=== PATIENT | female | born 1965 | race Caucasian/White ===

== ENCOUNTER 2017-06-01 11:46 | Emergency (ER) | payer OTHER ==
[2017-06-01 12:09] VITALS: BP 143/85; PULSE 80; TEMP 98; BMI 29.8
--- NOTE | 2017-06-01 13:17 | PDOC ---
History of Present Illness - General Chief Complaint: Cold Symptoms Stated Complaint: FEVER, HEADACHES Time Seen by Provider: 06/01/17 13:03 History Source: Patient Exam Limitations: No Limitations - History of Present Illness Initial Comments: 06/01/17 13:10 51 yr female with c/o cough nasal congestion, sinus congestion , ear pain for 3 days. past smoker no current medical history, on no medications. no shortness of breath or chest pain. pt states green productive phlegm . 06/01/17 13:14 Past History - Past Medical History Allergies/Adverse Reactions: Allergies Allergy/AdvReac Type Severity Reaction Status Date / Time No Known Drug Allergies Allergy Verified 06/01/17 12:06 strawberry [[place]] Allergy Rash Verified 06/01/17 12:06 Home Medications: Ambulatory Orders Azithromycin [Zithromax 250mg Tablets -] 250 mg PO UTDICT #6 tab 06/01/17 Other medical history: DENIES. - Psycho/Social/Smoking Cessation Hx Anxiety: No Suicidal Ideation: No Smoking History: Former smoker Have you smoked in the past 12 months: No If you are a former smoker, when did you quit?: 1999 Information on smoking cessation initiated: No Hx Alcohol Use: No Drug/Substance Use Hx: No Substance Use Type: None Respiratory Specific PMHX - Complaint Specific PMHX Angina: No Bronchitis: Yes Pneumonia: No Pulmonary Embolus: No TB (Tuberculosis): No Review of Systems - Review of Systems Able to Perform ROS?: Yes Is the patient limited Bermudian proficient: No Constitutional: Yes: See HPI. No: Symptoms Reported HEENTM: Yes: Symptoms Reported Respiratory: Yes: Symptoms reported *Physical Exam - Vital Signs Last Vital Signs Temp Pulse Resp BP Pulse Ox 98 F 80 19 143/85 97 06/01/17 12:06 06/01/17 12:06 06/01/17 12:06 06/01/17 12:06 06/01/17 12:06 - Physical Exam General Appearance: Yes: Nourished, Appropriately Dressed HEENT: positive: EOMI, JANIS, Pharynx Normal, Nasal Congestion, TM Bulging ( right ) Neck: positive: Supple. negative: Lymphadenopathy (R), Lymphadenopathy (L) Respiratory/Chest: positive: Lungs Clear, Normal Breath Sounds. negative: Rhonchi, Stridor, Wheezing Cardiovascular: positive: Regular Rhythm, Regular Rate Medical Decision Making - Medical Decision Making 06/01/17 13:15 cc: sinus congestion, productive cough , ear pain exam consistent with bronchitis will treat with pablo angel asking for a work note. *DC/Admit/Observation/Transfer Diagnosis at time of Disposition: Bronchitis, Nasal congestion - Discharge Dispostion Disposition: HOME Condition at time of disposition: Good - Prescriptions Prescriptions: Azithromycin [Zithromax 250mg Tablets -] 250 mg PO UTDICT #6 tab - Patient Instructions Printed Discharge Instructions: DI for Acute Bronchitis Additional Instructions: drink pleanty of fluids to stay hydrated take the Azithromycin as prescribed get an over the counter decongestant such as sudafed for congestion - Post Discharge Activity Work/School Note: Back to Work
== END 2017-06-01 13:22 | disposition home or self-care (01) ==
LOC: JERFT 11:46
DX: J40 Bronchitis, not specified as acute or chronic (principal); R09.89 Other specified symptoms and signs involving the circulatory and respiratory systems; Z87.891 Personal history of nicotine dependence
CPT/HCPCS: 99281-25

== ENCOUNTER 2017-10-27 21:52 | Emergency (ER) | payer SELFPAY ==
[2017-10-27 22:00] VITALS: BP 148/92; BMI 29.8
--- NOTE | 2017-10-27 22:44 | PDOC ---
History of Present Illness - General Chief Complaint: Cold Symptoms Stated Complaint: HEADACHE Time Seen by Provider: 10/27/17 21:58 - History of Present Illness Initial Comments: 10/27/17 22:33 Pt is a 51 F with no significant PMH who presents to ED with cold symptoms since late Sep. Pt states that she's had cough productive of brown phlegm , fever (101F on Sun), diarrhea (single episode on Sun), runny nose (recently has had bloody streaks on tissue when blowing her nose), headache, ear ache, and sore throat. Pt has been taking tylenol (last dose today at 3pm). She admits to decreased food intake, but she has been drinking fluids without trouble. Pt denies nausea, vomiting, sob, cp, abd pain, blood in urine/stool. Past History - Past Medical History Allergies/Adverse Reactions: Allergies Allergy/AdvReac Type Severity Reaction Status Date / Time No Known Drug Allergies Allergy Verified 06/01/17 12:06 strawberry [[place]] Allergy Rash Verified 06/01/17 12:06 Home Medications: Ambulatory Orders Benzonatate [Tessalon Pearls -] 100 mg PO TID #21 capsule 10/27/17 - Suicide/Smoking/Psychosocial Hx Smoking History: Former smoker Have you smoked in the past 12 months: No If you are a former smoker, when did you quit?: 2008 Information on smoking cessation initiated: No Hx Alcohol Use: No Drug/Substance Use Hx: No Substance Use Type: None Review of Systems - Review of Systems Able to Perform ROS?: Yes Is the patient limited French proficient: No Constitutional: Yes: Symptoms Reported, Fever. No: Chills, Weakness HEENTM: Yes: Symptoms Reported, Eye Pain, Ear Pain, Nose Congestion. No: Blurred Vision, Recent change in vision, Double Vision Respiratory: Yes: Symptoms reported, Cough, Productive cough. No: Shortness of Breath, Wheezing Cardiac (ROS): Yes: Symptoms Reported, Chest Pain (2/2 cough) ABD/GI: Yes: Diarrhea (single episode), Poor Appetite. No: Difficulty Swallowing, Nausea, Poor Fluid Intake, Rectal Bleeding, Vomiting : Yes: Symptoms Reported. No: Burning, Dysuria, Discharge, Frequency, Hematuria, Urgency Musculoskeletal: Yes: Symptoms Reported. No: Joint Pain, Muscle Pain, Muscle Weakness *Physical Exam - Vital Signs Last Vital Signs Temp Pulse Resp BP Pulse Ox 148/92 98 10/27/17 21:57 10/27/17 21:57 - Physical Exam General Appearance: Yes: Nourished, Appropriately Dressed. No: Apparent Distress HEENT: positive: EOMI, JANIS, Normal ENT Inspection, TMs Normal, Pharynx Normal, Hearing Grossly Normal. negative: Muffled/Hoarse voice, Pharyngeal Erythema, Tonsillar Erythema, Sinus Tenderness Neck: positive: Trachea midline, Supple. negative: Tender, Lymphadenopathy (R) , Lymphadenopathy (L) Respiratory/Chest: positive: Lungs Clear, Normal Breath Sounds. negative: Chest Tender, Respiratory Distress Cardiovascular: positive: Regular Rhythm, Regular Rate, S1, S2 Vascular Pulses: Dorsalis-Pedis (R): 2+, Doralis-Pedis (L): 2+ Gastrointestinal/Abdominal: positive: Normal Bowel Sounds, Flat, Soft. negative : Tender, Organomegaly, Pulsatile Mass Extremity: positive: Normal Capillary Refill, Normal Inspection Neurologic: positive: Fully Oriented, Alert, Normal Mood/Affect Medical Decision Making - Medical Decision Making 10/27/17 22:46 Pt is a 51F w/ no significant PMH who presented to ED with URI symptoms for 2 weeks. Pt had single episode of fever and diarrhea, both of which have resolved , however, headache, malaise, and cough persist. Plan -Flu swab -Tessalon juventino for 7 d outpt -Pt stable, afebrile, in NAD 10/28/17 05:36 Flu swab negative *DC/Admit/Observation/Transfer Diagnosis at time of Disposition: URI (upper respiratory infection) Qualifiers: URI type: unspecified viral URI Qualified Code(s): J06.9 - Acute upper respiratory infection, unspecified - Discharge Dispostion Disposition: HOME Admit: No - Prescriptions Prescriptions: Benzonatate [Tessalon Pearls -] 100 mg PO TID #21 capsule - Referrals - Patient Instructions Printed Discharge Instructions: How to Avoid a Cold or Flu, DI for Viral Upper Respiratory Infection -- Adult Additional Instructions: Please take your prescription medications as directed. Please follow up with your primary care doctor within a week. If you develop new symptoms or if your symptoms get worse, please return to the emergency department immediately. - Post Discharge Activity
== END 2017-10-28 00:23 | disposition home or self-care (01) ==
LOC: JER 21:52
DX: J06.9 Acute upper respiratory infection, unspecified (principal)
CPT/HCPCS: 87804; 99281-25

== ENCOUNTER 2019-05-02 16:49 | Emergency (ER) | payer SELFPAY ==
--- NOTE | 2019-05-02 16:59 | PDOC ---
Rapid Medical Evaluation Time Seen by Provider: 05/02/19 16:57 Medical Evaluation: Allergies Allergy/AdvReac Type Severity Reaction Status Date / Time No Known Drug Allergies Allergy Verified 06/01/17 12:06 strawberry [[place]] Allergy Rash Verified 06/01/17 12:06 05/02/19 16:57 I have performed a brief in-person evaluation of this patient. The patient presents with a chief complaint of: right wrist pain- RHD Pertinent physical exam findings: firm mobile mass present to right dorsal wrist laterally I have ordered the following: nothing The patient will proceed to the ED for further evaluation.
[2019-05-02 17:00] VITALS: BP 139/89; PULSE 99; TEMP 98.2; BMI 31.9
[2019-05-02] MEDS ORDERED: ACETAMINOPHEN 325 MG TABLET (FP) PO ONE (17:41)
[2019-05-02] MEDS ORDERED: ACETAMINOPHEN 325 MG TABLET (FP) ONE (17:41)
--- NOTE | 2019-05-02 17:41 | PDOC ---
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 She states it was definitely injured at work today. Patient has no chest pain, shortness of breath, but she feels a swelling in the right arm. No fever and otherwise feels well. GENERAL/CONSTITUTIONAL: No fever, weakness. dizziness HEAD, EYES, EARS, NOSE AND THROAT: No change in vision. No ear pain or discharge. No sore throat. CARDIOVASCULAR: No chest pain RESPIRATORY: No shortness of breath or cough GASTROINTESTINAL: No pain, nausea, vomiting, diarrhea or constipation GENITOURINARY: No dysuria MUSCULOSKELETAL: No neck or back pain, + right arm, wrist SKIN: No rash NEUROLOGIC: No headache, vertigo, loss of consciousness, or loss of sensation. GENERAL: The patient is awake, alert, and fully oriented, in no acute distress. HEAD: Normal with no signs of trauma. EYES: Pupils equal, round and reactive to light, sclera anicteric, conjunctiva clear. ENT: pharynx: no erythema, no exudate, uvula midline NECK: supple CHEST: clear, nontender, rr ABD: soft, nontender BACK: no tenderness or signs of injury EXTREMITIES: Right wrist with mild tenderness, painful range of motion, prominent veins, tender, no signs of infection, otherwise full range of motion, neurovascular intact. Rest of extremities, normal range of motion, no edema. NEUROLOGICAL: Normal speech, normal gait. SKIN: Warm, Dry Past History - Past Medical History Allergies/Adverse Reactions: Allergies Allergy/AdvReac Type Severity Reaction Status Date / Time No Known Drug Allergies Allergy Verified 05/02/19 17:00 strawberry [[place]] Allergy Rash Verified 05/02/19 17:00 Home Medications: Ambulatory Orders NK [No Known Home Medication] 05/02/19 COPD: No - Suicide/Smoking/Psychosocial Hx Smoking History: Former smoker Have you smoked in the past 12 months: No If you are a former smoker, when did you quit?: 9 YEARS AGO Information on smoking cessation initiated: No Hx Alcohol Use: No Drug/Substance Use Hx: No Substance Use Type: None *Physical Exam - Vital Signs Last Vital Signs Temp Pulse Resp BP Pulse Ox 98.2 F 99 H 16 139/89 100 05/02/19 16:56 05/02/19 16:56 05/02/19 16:56 05/02/19 16:56 05/02/19 16:56 Procedures - Splinting Splint Location: Right: Wrist Pre-Proc Neuro Vasc Exam: normal Pre-Made Type: velcro Post-Proc Neuro Vasc Exam: normal Kiran Bandage: no Medical Decision Making - Medical Decision Making 05/02/19 18:48 Patient with arm injury, wrist injury at work today, but has also had right arm pain, concerned about prominent veins, and tenderness. No signs of infection, patient otherwise feels well with no medical problems. Will get x-ray and ultrasound, unlikely either are going to be positive Discussed issues, findings, results, applicable medications and treatments and follow-up. All these were understood and all questions were answered *DC/Admit/Observation/Transfer Diagnosis at time of Disposition: Right wrist injury Qualifiers: Encounter type: initial encounter Qualified Code(s): S69.91XA - Unspecified injury of right wrist, hand and finger(s), initial encounter - Discharge Dispostion Disposition: HOME Condition at time of disposition: Stable Decision to Admit order: No - Referrals Referrals: Adrian Peoples MD [Staff Physician] - - Patient Instructions Additional Instructions: Elevate, wear splint You can apply ice for 20 minutes every 2 hours for the next 2 days Motrin 600 mg every 6 hours for pain. Call the orthopedist tomorrow - Post Discharge Activity
== END 2019-05-02 19:03 | disposition home or self-care (01) ==
LOC: JERFT 16:49
PROC: 2W3CX1Z Immobilization of Right Lower Arm using Splint (ICD-10-PCS; principal; 2019-05-02)
DX: M25.531 Pain in right wrist (principal); X50.0XXA Overexertion from strenuous movement or load, initial encounter; Y93.F2 Activity, caregiving, lifting; Y92.128 Other place in nursing home as the place of occurrence of the external cause; Y99.0 Civilian activity done for income or pay
CPT/HCPCS: 73110-TC-RT-FY; 93971; 99281-25

== ENCOUNTER 2019-07-12 14:57 | Emergency (ER) | payer SELFPAY ==
[2019-07-12 15:14] VITALS: BP 140/89; PULSE 88; TEMP 98.1; BMI 31.4
[2019-07-12] MEDS ORDERED: IBUPROFEN 600 MG TABLET (FP) PO ONE ×2 (16:14→16:17)
--- NOTE | 2019-07-12 16:16 | PDOC ---
History of Present Illness - General Chief Complaint: Bite Stated Complaint: BEE STING Time Seen by Provider: 07/12/19 15:54 History Source: Patient Exam Limitations: No Limitations Past History - Travel Traveled outside of the country in the last 30 days: No Close contact w/someone who was outside of country & ill: No - Past Medical History Allergies/Adverse Reactions: Allergies Allergy/AdvReac Type Severity Reaction Status Date / Time No Known Drug Allergies Allergy Verified 07/12/19 15:11 strawberry [[place]] Allergy Rash Verified 07/12/19 15:11 Home Medications: Ambulatory Orders NK [No Known Home Medication] 05/02/19 COPD: No - Suicide/Smoking/Psychosocial Hx Smoking History: Never smoked Have you smoked in the past 12 months: No If you are a former smoker, when did you quit?: 9 YEARS AGO Hx Alcohol Use: No Drug/Substance Use Hx: No Substance Use Type: None Review of Systems - Review of Systems Able to Perform ROS?: Yes Comments:: 07/12/19 18:08 CONSTITUTIONAL: Absent: fever, chills, diaphoresis, generalized weakness, malaise, loss of appetite HEENT: Absent: rhinorrhea, nasal congestion, throat pain, throat swelling, difficulty swallowing, mouth swelling, ear pain, eye pain, visual Changes CARDIOVASCULAR: Absent: chest pain, loss of consciousness, palpitations, irregular heart rate, peripheral edema RESPIRATORY: SKIN: Present: bite to back Absent: rash, itching, pallor NEUROLOGIC: Absent: headache, focal weakness or paresthesias, dizziness, unsteady gait, seizure, mental status changes, bladder or bowel incontinence PSYCHIATRIC: Absent: anxiety, depression, suicidal or homicidal ideation, hallucinations. Is the patient limited Kazakh proficient: No *Physical Exam - Vital Signs Last Vital Signs Temp Pulse Resp BP Pulse Ox 98.1 F 88 16 140/89 95 07/12/19 15:11 07/12/19 15:11 07/12/19 15:11 07/12/19 15:11 07/12/19 15:11 - Physical Exam Comments: 07/12/19 18:09 GENERAL: The patient is awake, alert, and fully oriented, in no acute distress. HEAD: Normal with no signs of trauma. EYES: Pupils equal, round and reactive to light, extraocular movements intact, sclera anicteric, conjunctiva clear. LUNGS: CTAB B/L, (-) w/r/r EXTREMITIES: Normal range of motion, no edema. NEUROLOGICAL: Normal speech, normal gait. PSYCH: Normal mood, normal affect. SKIN: Nickel sized bite to the R upper back, no overlying erythema. Warm, Dry, normal turgor, no rashes or lesions noted. Medical Decision Making - Medical Decision Making 07/12/19 18:10 The patient is a 53 y/o F who presents to the ER today after getting a bee sting to her R upper back. She states that she was sitting in the car when she felt the sting. She was unsure if the stinger was still in, so she came to the ER for evaluation. Denies fevers, chills, n/v/d, sob, wheezing, stridor. A/P: bee sting On exam nickel sized bee sting to the R upper back, no infection presents at this time No stinger present Airway clear and maintained DC home with symptomatic relief I discussed the physical exam findings, ancillary test results and final diagnoses with the patient. I answered all of the patient's questions. The patient was satisfied with the care received and felt comfortable with the discharge plan and treatment plan. The Patient agrees to follow up with the primary care physician/specialist within 24-72 hours. Return precautions were given. *DC/Admit/Observation/Transfer Diagnosis at time of Disposition: Bee sting Qualifiers: Encounter type: initial encounter Injury intent: accidental or unintentional Qualified Code(s): T63.441A - Toxic effect of venom of bees, accidental ( unintentional), initial encounter - Discharge Dispostion Disposition: HOME Condition at time of disposition: Stable Decision to Admit order: No - Referrals Referrals: Kaz Oneill MD [Staff Physician] - - Patient Instructions Printed Discharge Instructions: DI for Insect Bites and Stings Additional Instructions: You were seen for a bee sting The stinger is out Use benadryl cream and ice to the area to help with your symptoms Follow up with your primary care doctor this week. Return to the ER for difficulty breathing, shortness of breath, or if you have any changes in your symptoms - Post Discharge Activity Forms/Work/School Notes: Back to Work
== END 2019-07-12 16:19 | disposition home or self-care (01) ==
LOC: JERFT 14:57
DX: T63.441A Toxic effect of venom of bees, accidental (unintentional), initial encounter (principal); T63.444A Toxic effect of venom of bees, undetermined, initial encounter; M54.89 Other dorsalgia; Y92.89 Other specified places as the place of occurrence of the external cause
CPT/HCPCS: 99281-25

== ENCOUNTER 2020-04-30 07:54 | Emergency (ER) | payer BC ==
[2020-04-30 07:59] VITALS: BP 141/90; PULSE 80; TEMP 98.4; BMI 31.4
[2020-04-30] MEDS ORDERED: LIDOCAINE 5% TOPICAL PATCH TP ONE (08:42)
[2020-04-30] MEDS ORDERED: KETOROLAC TROMETHAMINE 30 MG/1 ML VIAL IM ONE (08:43)
--- NOTE | 2020-04-30 08:44 | PDOC ---
Attending Attestation - Resident Resident Name: Janay Childs - ED Attending Attestation I have performed the following: I have examined & evaluated the patient, The case was reviewed & discussed with the resident, I agree w/resident's findings & plan, Exceptions are as noted - HPI HPI: 04/30/20 08:42 54y no pmhx presents with back pain after standing up several days ago. using motrin but now worsening. no associated fever/chills, numbn ess/tingling/weakness, urinary or bowel incontinence. pain seems worse as she is standing up. exam: back: no erythema/induraiton/fluctance, no focal bony tendernes,s mild b/l paraspinal lumbar tendernss will obtian xray will give lidocain patch analgesia/flexeril prn 04/30/20 10:33 xray negaive pt feelin gimproved will dc with [facility] and pmd fu return precautions were discussed - Physicial Exam PE: 04/30/20 10:33 see above - Medical Decision Making 04/30/20 10:33 see above Discharge - Discharge Information Problems reviewed: Yes Clinical Impression/Diagnosis: Back pain Qualifiers: Back pain location: low back pain Chronicity: acute Back pain laterality: bilateral Sciatica presence: without sciatica Qualified Code(s): M54.5 - Low back pain Back strain Qualifiers: Encounter type: initial encounter Qualified Code(s): S39.012A - Strain of muscle, fascia and tendon of lower back, initial encounter Condition: Improved Disposition: HOME - Additional Discharge Information Prescriptions: Cyclobenzaprine HCl [Flexeril -] 10 mg PO HS PRN #7 tablet PRN Reason: Muscle Spasms - Follow up/Referral Referrals: [facility] [Provider Group] - Patient Discharge Instructions Patient Printed Discharge Instructions: Back Pain (Alternative Therapy), DI for Back Strain or Sprain Additional Instructions: You were seen in the ER today for low back pain. The results of your imaging today were normal. Please follow-up with your primary care doctor within 1-2 days to discuss your visit and make sure your symptoms have improved. Please return to the ER if you have any worsening pain, development of fevers or chi lls, stool or urine incontinence, weakness in your extremities, loss of consciousness, inability to tolerate food or fluids, or any other concerns. - Post Discharge Activity Work/Back to School Note: Back to Work
[2020-04-30] MEDS ORDERED: LIDOCAINE 5% TOPICAL PATCH ONE (08:56)
[2020-04-30] MEDS ORDERED: KETOROLAC TROMETHAMINE 30 MG/1 ML VIAL ONE (08:56)
--- NOTE | 2020-04-30 09:10 | PDOC ---
History of Present Illness - General Chief Complaint: Back Pain Stated Complaint: BACK PAIN Time Seen by Provider: 04/30/20 08:14 History Source: Patient Exam Limitations: No Limitations - History of Present Illness Initial Comments: Pt is a 54 yo F, with no significant PMH, who is presenting with complaints of b/l lower back pain x2 days after she stood up while lifting a light (~5 lbs) bin. Pt has been taking 200 mg motrin intermittently (last dose yesterday afternoon) with minimal relief. Pt states the pain is cramping, on both sides of the lower back, and does not radiate. The pain is worse with standing up straight. Pt denies any fevers/chills, headache, vision changes, syncope, chest pain, palpitations, SOB, nausea/vomiting, abdominal pain, incontinence of urine or stool, urinary symptoms, diarrhea/constipation, weakness/parasthesias/numbness in the extremities, or leg swelling. Allergies: NKDA Social: Pt denies any cigarette, alcohol, or drug use. Pt works as a health attendant. Pt denies any recent travel or sick contacts. Surgical: no relevant history. Family: no relevant history. 06/17/20 09:06 Past History - Travel History Traveled outside of the country in the last 30 days: No Close contact w/someone who was outside of country & ill: No - Medical History Allergies/Adverse Reactions: Allergies Allergy/AdvReac Type Severity Reaction Status Date / Time No Known Drug Allergies Allergy Verified 04/30/20 07:55 strawberry [[place]] Allergy Rash Verified 04/30/20 07:55 Home Medications: Ambulatory Orders Cyclobenzaprine HCl [Flexeril -] 10 mg PO HS PRN #7 tablet 04/30/20 COPD: No - Psycho-Social/Smoking History Smoking History: Former smoker Have you smoked in the past 12 months: No If you are a former smoker, when did you quit?: 9 YEARS AGO Information on smoking cessation initiated: No - Substance Abuse Hx (Audit-C & DAST Scrn) How often the patient has a drink containing alcohol: Never Score: In Men: 4 or > Positive; In Women: 3 or > Positive: 0 Screen Result (Pos requires Nsg. Audit-10AR): Negative In the last yr the pt used illegal drug/Rx for NonMed reason: No Score: Yes response is considered Positive: 0 Screen Result (Positive result requires Nsg. DAST-10): Negative Trauma Specific PMHX - Complaint Specific PMHX Arthritis: No Back Injury: No Neck Injury: No Hx Sacro Iliac Joint Dysfunction: No Review of Systems - Review of Systems Able to Perform ROS?: Yes Is the patient limited Spanish proficient: No Constitutional: Yes: Weight Stable. No: Chills, Diaphoresis, Fever, Loss of Appetite, Malaise, Night Sweats, Weakness HEENTM: No: Recent change in vision, Nose Congestion, Throat Pain, Throat Swelling, Difficulty Swallowing Respiratory: No: Cough, Orthopnea, Shortness of Breath Cardiac (ROS): No: Chest Pain, Edema, Irregular Heart Rate, Lightheadedness, Palpitations, Syncope, Chest Tightness ABD/GI: No: Constipated, Diarrhea, Nausea, Poor Appetite, Poor Fluid Intake, Vomiting : No: Burning, Dysuria, Flank Pain, Hematuria, Pain, Urgency Musculoskeletal: Yes: See HPI, Back Pain, Muscle Pain. No: Joint Pain, Joint Swelling, Muscle Weakness, Neck Pain, Joint Stiffness Integumentary: No: Bruising, Lesions, Rash Neurological: No: Headache, Numbness, Paresthesia, Weakness, Unsteady Gait, Dizziness Psychiatric: No: Sleep Pattern Change, Change in Appetite Endocrine: No: Increased Urine, Change in Weight Hematologic/Lymphatic: No: Anemia, Blood Clots, Easy Bleeding, Easy Bruising All Other Systems: Reviewed and Negative *Physical Exam - Vital Signs Last Vital Signs Temp Pulse Resp BP Pulse Ox 98.4 F 80 16 141/90 99 04/30/20 07:55 04/30/20 07:55 04/30/20 07:55 04/30/20 07:55 04/30/20 07:55 - Physical Exam Vitals stable, pt afebrile. Pt in NAD, but appears uncomfortable. Standing upright and holding lower back. Obese body habitus. Pt alert and oriented x3. it trainer generally intact, muscular strength and sensation intact. No midline spinal tenderness, step-offs, or crepitus. +b/l lower paraspinal TTP. Head normocephalic, atraumatic. Eyes PERRLA, EOMI. Oropharynx without erythema or exudates, no LAD b/l. No nasal congestion. Hearing intact. Clear heart sounds, S1/S2, no JVD, b/l pedal edema, or heart murmur. Clear lung sounds, no respiratory distress, wheezes, crackles, or accessory muscle use. No abdominal or CVA tenderness to palpation, no rebound, no guarding. Abdomen soft, non-distended, and with normoactive bowel sounds. Skin without jaundice or rash. 06/17/20 09:10 ED Treatment Course - RADIOLOGY Radiology Studies Ordered: Category Date Time Status SPINE-LUMBAR SACRAL [RAD] Stat Radiology 04/30/20 08:41 Ordered - Medications Given in the ED: ED Medications Discontinued Medications Generic Name Dose Route Start Last Admin Trade Name Freq PRN Reason Stop Dose Admin Ketorolac Tromethamine 30 mg 04/30/20 08:43 04/30/20 08:58 Toradol Injection - IM 04/30/20 08:44 30 mg ONCE ONE Administration Lidocaine 1 patch 04/30/20 08:42 04/30/20 08:57 Lidoderm Patch - TP 04/30/20 08:43 1 patch ONCE ONE Administration Medical Decision Making - Medical Decision Making Pt was seen at bedside, also will be seen by attending Dr. Pollack. Pt presenting with b/l paraspinal lower back pain, with no traumatic mechanism. No red flag symptoms, and VSS/afebrile on arrival. Likely MSK pain 2/2 lumbar strain. Provided 30 mg IM toradol and lidocaine patch for improvement of pain. Lumbar spine x-ray to evaluate for fracture/space narrowing. Will continue to reassess pt and monitor for symptomatic improvement. 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 Pt advised to follow-up with PCP in 1-2 days. Strict return precautions provided with pt understanding. 06/17/20 09:11 06/17/20 09:13 Discharge - Discharge Information Problems reviewed: Yes Clinical Impression/Diagnosis: Back pain Qualifiers: Back pain location: low back pain Chronicity: acute Back pain laterality: bilateral Sciatica presence: without sciatica Qualified Code(s): M54.5 - Low back pain Back strain Qualifiers: Encounter type: initial encounter Qualified Code(s): S39.012A - Strain of muscle, fascia and tendon of lower back, initial encounter Condition: Improved Disposition: HOME - Admission No - Additional Discharge Information Prescriptions: Cyclobenzaprine HCl [Flexeril -] 10 mg PO HS PRN #7 tablet PRN Reason: Muscle Spasms - Follow up/Referral Referrals: [facility] [place] [Provider Group] - Patient Discharge Instructions Patient Printed Discharge Instructions: Back Pain (Alternative Therapy), DI for Back Strain or Sprain Additional Instructions: You were seen in the ER today for low back pain. The results of your imaging today were normal. Please follow-up with your primary care doctor within 1-2 days to discuss your visit and make sure your symptoms have improved. Please return to the ER if you have any worsening pain, development of fevers or chills, stool or urine incontinence, weakness in your extremities, loss of consciousness, inability to tolerate food or fluids, or any other concerns. - Post Discharge Activity Work/Back to School Note: Back to Work
[2020-04-30] MEDS ORDERED: LIDOCAINE PATCH REMOVAL MC SCH (22:00)
== END 2020-04-30 11:10 | disposition home or self-care (01) ==
LOC: JER 07:54
PROC: 3E0234Z Introduction of Serum, Toxoid and Vaccine into Muscle, Percutaneous Approach (ICD-10-PCS; principal; 2020-04-30)
DX: M54.5 Low back pain (principal); S39.012A Strain of muscle, fascia and tendon of lower back, initial encounter
CPT/HCPCS: 72100-TC-FY; 99285-25

== ENCOUNTER 2020-11-06 10:06 | Emergency (ER) | payer BC | END 2020-11-06 11:34 | disposition home or self-care (01) | LOC: JVIRT 10:06 | DX: L03.114 Cellulitis of left upper limb (principal); S60.512A Abrasion of left hand, initial encounter; W55.03XA Scratched by cat, initial encounter | CPT/HCPCS: G2012-GT ==

== ENCOUNTER 2020-11-14 13:19 | Emergency (ER) | payer BC ==
[2020-11-14 13:24] VITALS: BP 133/101; PULSE 116; TEMP 97; BMI 31.4
== END 2020-11-14 14:09 | disposition home or self-care (01) ==
LOC: JERFT 13:19
DX: S61.452A Open bite of left hand, initial encounter (principal)
CPT/HCPCS: 73130-TC-LT-FY; 99284-25

== ENCOUNTER 2024-05-22 05:45 | Emergency (ER) | payer OTHER ==
[2024-05-22 05:53] VITALS: BP 109/45; PULSE 98; RESP 18; TEMP 97.5; BMI 32.3
[2024-05-22] MEDS ORDERED: ONDANSETRON 4 MG/2 ML VIAL ONE (06:29)
[2024-05-22] MEDS ORDERED: ACETAMINOPHEN INJECTION 100 ML IVPB ONE (06:29)
[2024-05-22] MEDS ORDERED: FAMOTIDINE 20 MG/50 ML IVPB 20 MG/50 ML MG IVPB ONE (06:29)
[2024-05-22] MEDS: ONDANSETRON 4 MG/2 ML VIAL IVPUSH ONE (06:42)
[2024-05-22] MEDS: FAMOTIDINE 20 MG/50 ML IVPB 20 MG/50 ML MG IVPB ONE (06:42)
[2024-05-22] MEDS: LACTATED RINGERS SOLUTION 1000 ML INFUS.BAG IV ONE (06:42)
[2024-05-22] MEDS: ACETAMINOPHEN 1000 MG/100 ML BAG IVPB ONE (06:42)
[2024-05-22 06:50] LABS: HEMATOCRIT 37.8 % (32.4-45.2); HEMOGLOBIN 12.4 GM/dL (10.7-15.3); MCH 27.8 pg (25.7-33.7); MCHC 32.8 g/dl (32.0-36.0); MEAN CELL VOLUME 84.7 fl (80-96); MEAN PLT VOLUME 8.4 fl (7.5-11.1); PLATELET COUNT 260 10^3/uL (134-434); RBC 4.46 M/mm3 (3.60-5.2); RDW 13.6 % (11.6-15.6); WHITE BLOOD COUNT 16.6 K/mm3 (4.0-10.0)
[2024-05-22 07:06] LABS: POTASSIUM 4.2 mmol/L (3.5-5.1)
[2024-05-22 07:08] LABS: CALCIUM 8.8 mg/dL (8.5-10.1)
[2024-05-22 07:09] LABS: ALBUMIN 3.6 g/dl (3.4-5.0); BLOOD UREA NITROGEN 15.8 mg/dL (7-18); MAGNESIUM 1.7 mg/dL (1.8-2.4)
[2024-05-22 07:12] LABS: CREATININE 0.8 mg/dL (0.55-1.3)
[2024-05-22 07:14] LABS: BILIRUBIN,TOTAL 1.1 mg/dL (0.2-1); TOT PROT 7.3 g/dl (6.4-8.2)
[2024-05-22] MEDS ORDERED: MAGNESIUM SULFATE IN WATER 2 GM/50 ML IVPB IVPB ONE (08:29)
[2024-05-22] MEDS: MAGNESIUM SULFATE IN WATER 2 GM/50 ML IVPB IVPB ONE (08:39)
[2024-05-22 09:06] LABS: ANISOCYTOSIS 0; MACROCYTOSIS 0
[2024-05-22 09:54] LABS: URINE APPEARANCE CLEAR; URINE BILIRUBIN NEGATIVE (NEGATIVE); URINE COLOR YELLOW; URINE GLUCOSE (UA) NEGATIVE (NEGATIVE); URINE KETONE NEGATIVE (NEGATIVE); URINE LEUK ESTERASE NEGATIVE (NEGATIVE); URINE NITRITE NEGATIVE (NEGATIVE); URINE PROTEIN NEGATIVE (NEGATIVE); URINE UROBILINOGEN 0.2 mg/dL (0.2-1.0)
== END 2024-05-22 10:17 | disposition home or self-care (01) ==
LOC: JER 05:45
PROC: 3E033NZ Introduction of Analgesics, Hypnotics, Sedatives into Peripheral Vein, Percutaneous Approach (ICD-10-PCS; principal; 2024-05-22)
PROC: 3E033GC Introduction of Other Therapeutic Substance into Peripheral Vein, Percutaneous Approach (ICD-10-PCS; 2024-05-22)
PROC: 3E033GC Introduction of Other Therapeutic Substance into Peripheral Vein, Percutaneous Approach (ICD-10-PCS; 2024-05-22)
PROC: 3E033GC Introduction of Other Therapeutic Substance into Peripheral Vein, Percutaneous Approach (ICD-10-PCS; 2024-05-22)
DX: R10.31 Right lower quadrant pain (principal); R10.32 Left lower quadrant pain; R11.2 Nausea with vomiting, unspecified
CPT/HCPCS: 36415; 71045-TC-FY; 80053; 81003; 83690; 83735; 85025; 87086; 93005; 93010; 99285-25; J0131